=== PATIENT | male | born 1990 | race Caucasian/White ===

== ENCOUNTER 2016-09-21 15:03 | Emergency (ER) | payer MEDICAID ==
--- NOTE | 2016-09-21 16:00 | CPEKG ---
Heart Rate: 83 RR Interval: 723 P-R Interval: 152 QRSD Interval: 90 QT Interval: 368 QTC Interval: 433 P [place]: 62 QRS [place]: 107 T Wave [place]: 66 EKG Severity - OTHERWISE NORMAL ECG - EKG Impression: SINUS RHYTHM EKG Impression: BORDERLINE RIGHT AXIS DEVIATION Electronically Signed By: Shirley Osman 21-Sep-2016 22:02:12
[2016-09-21] MEDS ORDERED: ONDANSETRON 4 MG/2 ML VIAL IVP ONE (16:13)
[2016-09-21 16:20] LABS: % IMMATURE GRANULYOCYTES 0.3 % (0.0-1.1); ABSOLUTE IMMATURE GRANULOCYTES 0.02 10^3/uL (0.00-0.10); ADD DIFF? NO; ADD MORPH? NO; ADD SCAN? NO; ATYPICAL LYMPHOCYTE FLAG 30 (0-99); FRAGMENT RBC FLAG 0 (0-99); HEMATOCRIT 46.8 % (40.0-51.0); HEMOGLOBIN 16.7 g/dL (13.7-17.5); LEFT SHIFT FLG 0 (0-99); LIPEMIA HEMOLYSIS FLAG 90 (0-99); MEAN CELL HEMOGLOBIN 31.5 pg (27.9-34.1); MEAN CELL HEMOGLOBIN CONCENTR. 35.7 g/dL (32.4-36.7); MEAN CELL VOLUME 88.3 fL (81.5-99.8); MEAN PLATELET VOLUME 10.2 fL (8.7-11.7); PLATELET CLUMPS FLAG 10 (0-99); PLATELET COUNT 203 10^3/uL (150-400); RED CELL DISTRIBUTION WIDTH 12.8 % (11.5-15.2)
--- NOTE | 2016-09-21 16:20 | EDPHY ---
H & P Stated Complaint: CP HPI/ROS: CHIEF COMPLAINT: Chest pain, difficulty swallowing, nausea or vomiting HISTORY OF PRESENT ILLNESS: Several days history of cough, chest pain, shortness of breath, abdominal pain, nausea, vomiting, shaking. This was a gradual onset with constant duration. difficult to predict any modifying factors for this. Some improvement with Klonopin takes for anxiety. No definite , predictable exacerbating factors. May have some dark stools this morning. No bright red blood or bright red emesis. No fever but some chills. Concerned about the throat is he has difficulty swallowing. He has no hoarseness or pain in the back Of the throat at this time. He does believe he had a cold recently. no formal workup for this. No other associated complaints or modifying factors. No recent travel or surgery. No history of venous thrombolic event. No exogenous testosterone use. No erythema, edema or pain of the lower extremities. REVIEW OF SYSTEMS: Ten systems reviewed and are negative unless otherwise noted in the HPI EXAMINATION General Appearance: Alert, no distress , anxious Head: normocephalic, atraumatic Eyes: Pupils equal and round, no conjunctival pallor or injection. EOMs intact ENT, Mouth: Mucous membranes moist. Postnasal drip but no edema or erythema. No abscess. Normal voice Neck: Normal inspection, supple, non-tender. Lymphadenopathy Respiratory: Lungs are clear to auscultation. No wheezing rhonchi or crackles Cardiovascular: Regular rate and rhythm. Pulses intact distally. Gastrointestinal: Abdomen is soft and nontender . No CVA tenderness. No tympany, rigidity. Nonacute abdomen. Back: non-tender, no bony abnormalities Neurological: A&O, nonfocal, Mild resting tremor. Strength is 5/5 in all limbs. No pronator drift. Skin: Warm and dry, no rash Extremities: Nontender, no pedal edema Psychiatric: Mood and affect normal DIFFERENTIAL DIAGNOSES: Including but not limited to Anxiety reaction, pericarditis, pleurisy, pneumonia, bronchitis, influenza, PE MDM: 4:17 p.m. multiple complaints including chest pain and throat pain. The patient does not have risk factors for venous embolic event, the symptoms have been present for 3-5 days. Vital signs are stable he does appear somewhat anxious. I have ordered pain medication, laboratory studies, chest x-ray. I very low suspicion for PE, but I have ordered a D-dimer. EKG shows early repolarization but no ST depressions or acute ischemia. 5:09 p.m. labs are within normal limits without any abnormal findings. This includes a negative D-dimer. Chest x-ray is clear without any consolidation For pneumonia. I suspect that there is a high component of anxiety to this, along with the likely viral scenario, pericarditis versus pleurisy. More likely pleurisy. He is resting comfortably in no acute distress. He is feeling better given our treatment here. 5:20 p.m. I have discussed case with Dr. Osman she has examined the patient. We are in agreement the patient is stable for discharge home. We will treat him presumptively with Zithromax, anti-inflammatories. Regarding his mention of the dark stools, I did recommend a digital rectal exam for occult blood, and he has declined. He feels it is an insignificant amount of blood. He is instructed follow up with primary care physician for ongoing symptoms, worsening chest pain, difficulty swallowing or shortness of breath. He is comfortable with this plan and discharged home in stable condition. EKG: Interpreted by Dr. Osman. Rate is 80 beats per minute, sinus rhythm. Right axis deviation. Early repolarization in her lateral leads. T-waves inverted in AVR. Interpretation normal sinus rhythm with early refill right after deviation SUPERVISION: Patient was evaluated in conjunction with the supervising physician. Please see their note for details. Source: Patient, Family Exam Limitations: No limitations - Personal History Current Tetanus/Diphtheria Vaccine: Yes Current Tetanus Diphtheria and Acellular Pertussis (TDAP): Yes - Medical/Surgical History Hx Asthma: No Hx Chronic Respiratory Disease: No Hx Diabetes: No Hx Cardiac Disease: No Hx Renal Disease: No Hx Cirrhosis: No Hx Alcoholism: No Hx HIV/AIDS: No Hx Splenectomy or Spleen Trauma: No Other PMH: ANXIETY - Social History Smoking Status: Never smoked Constitutional: Initial Vital Signs Temperature (C) 98.4 F 09/21/16 15:44 Heart Rate 109 H 09/21/16 15:44 Respiratory Rate 14 09/21/16 15:44 Blood Pressure 153/89 H 09/21/16 15:44 O2 Sat (%) 96 09/21/16 15:44 O2 Delivery Mode Room Air Allergies/Adverse Reactions: No Known Allergies Allergy (Unverified 09/21/16 15:43) Home Medications: Medication Instructions Recorded Azithromycin [Zithromax] 250 mg PO DAILY #6 tab 09/21/16 Medical Decision Making - Data Points Laboratory Results: Laboratory Results 09/21/16 16:00 09/21/16 16:20 09/21/16 09/21/16 09/21/16 16:20 16:19 16:00 WBC 6.60 10^3/uL (3.80-9.50) RBC 5.30 10^6/uL (4.40-6.38) Hgb 16.7 g/dL (13.7-17.5) Hct 46.8 % (40.0-51.0) MCV 88.3 fL (81.5-99.8) MCH 31.5 pg (27.9-34.1) MCHC 35.7 g/dL (32.4-36.7) RDW 12.8 % (11.5-15.2) Plt Count 203 10^3/uL (150-400) MPV 10.2 fL (8.7-11.7) Neut % (Auto) 57.1 % (39.3-74.2) Lymph % (Auto) 25.2 % (15.0-45.0) [place] % (Auto) 16.5 H % (4.5-13.0) Eos % (Auto) 0.6 % (0.6-7.6) Baso % (Auto) 0.3 % (0.3-1.7) Nucleat RBC Rel Count 0.0 % (0.0-0.2) Absolute Neuts (auto) 3.77 10^3/uL (1.70-6.50) Absolute Lymphs (auto) 1.66 10^3/uL (1.00-3.00) Absolute Monos (auto) 1.09 H 10^3/uL (0.30-0.80) Absolute Eos (auto) 0.04 10^3/uL (0.03-0.40) Absolute Basos (auto) 0.02 10^3/uL (0.02-0.10) Absolute Nucleated RBC 0.00 10^3/uL (0-0.01) Immature Gran % 0.3 % (0.0-1.1) Immature Gran # 0.02 10^3/uL (0.00-0.10) PT 12.8 SEC (12.0-15.0) INR 0.97 (0.83-1.16) APTT 26.8 SEC (23.0-38.0) D-Dimer < 0.27 ug/mLFEU (0.00-0.50) Sodium 141 mEq/L (134-144) Potassium 3.6 mEq/L (3.5-5.2) Chloride 102 mEq/L (97-110) Carbon Dioxide 24 mEq/l (22-31) Anion Gap 15 mEq/L (8-16) BUN 8 mg/dL (7-23) Creatinine 0.8 mg/dL (0.7-1.3) Estimated GFR > 60 Glucose 94 mg/dL (70-100) Calcium 9.8 mg/dL (8.5-10.4) Total Bilirubin 0.8 mg/dL (0.1-1.4) Conjugated Bilirubin 0.3 mg/dL (0.0-0.5) Unconjugated Bilirubin 0.5 mg/dL (0.0-1.1) AST 36 IU/L (17-59) ALT 37 IU/L (21-72) Alkaline Phosphatase 90 IU/L (38-126) Troponin I < 0.012 ng/mL (0-0.034) Total Protein 8.5 H g/dL (6.3-8.2) Albumin 4.9 g/dL (3.5-5.0) Lipase 95.0 IU/L (23-300) Medications Given: Discontinued Medications Morphine Sulfate (Morphine) 4 mg IVP EDNOW ONE Stop: 09/21/16 16:14 Last Admin: 09/21/16 16:29 Dose: 4 mg Ondansetron HCl (Zofran) 4 mg IVP EDNOW ONE Stop: 09/21/16 16:14 Last Admin: 09/21/16 16:29 Dose: 4 mg Departure - Departure Disposition: Home, Routine, Self-Care Clinical Impression: Chest pain Qualifiers: Qualifier Code: (R07.9) Chest pain, unspecified Pharyngitis Qualifiers: Qualifier Code: (J02.9) Acute pharyngitis, unspecified Nausea & vomiting Qualifiers: Qualifier Code: (R11.2) Nausea with vomiting, unspecified Condition: Good Instructions: Pleurisy (ED), Chest Pain (ED), Pharyngitis (ED) Additional Instructions: Follow-up with primary care physician for definitive care. Return to ER for worsening chest pain, shortness of breath, fever or bright red blood per stool Referrals: NONE *PRIMARY CARE P,. [Primary Care Provider] - As per Instructions Burt Beebe DO [Doctor of Osteopathy] - As per Instructions Prescriptions: Azithromycin [Zithromax] 250 mg PO DAILY #6 tab
[2016-09-21 16:31] LABS: APTT 26.8 SEC (23.0-38.0); INR 0.97 (0.83-1.16); PROTIME(PATIENT) 12.8 SEC (12.0-15.0)
[2016-09-21 16:32] LABS: ALANINE AMINOTRANSFERASE 37 IU/L (21-72); ALBUMIN 4.9 g/dL (3.5-5.0); ALKALINE PHOSPHATASE 90 IU/L (38-126); ANION GAP 15 mEq/L (8-16); ASPARTATE AMINOTRANSFERASE 36 IU/L (17-59); BILIRUBIN,TOTAL 0.8 mg/dL (0.1-1.4); BILIRUBIN-CONJUGATED 0.3 mg/dL (0.0-0.5); BILIRUBIN-UNCONJUGATED 0.5 mg/dL (0.0-1.1); CALCIUM 9.8 mg/dL (8.5-10.4); CARBON DIOXIDE 24 mEq/l (22-31); CHLORIDE 102 mEq/L (97-110); CREATININE 0.8 mg/dL (0.7-1.3); GLOMERULAR FILTRATION RATE > 60; GLUCOSE 94 mg/dL (70-100); POTASSIUM 3.6 mEq/L (3.5-5.2); SODIUM 141 mEq/L (134-144); TOTAL PROTEIN 8.5 g/dL (6.3-8.2)
[2016-09-21 16:42] LABS: TROPONIN I < 0.012 ng/mL (0-0.034)
--- NOTE | 2016-09-21 16:47 | DX ---
PA and Lateral Chest Indication: Chest pain and cough Comparison: None Findings: The lungs are well aerated and clear. No pneumothorax, consolidation, or effusion. Heart si ze normal. Impression: Clear lungs. No acute process.
[2016-09-21 17:42] VITALS: BP 157/77; PULSE 102; RESP 18; TEMP 98.8; O2SAT 97
== END 2016-09-21 17:40 | disposition home or self-care (01) ==
DX: R11.2 Nausea with vomiting, unspecified (principal); R07.9 Chest pain, unspecified; J02.9 Acute pharyngitis, unspecified
CPT/HCPCS: 96374; J2405

== ENCOUNTER 2016-10-07 17:46 | Emergency (ER) | payer MEDICAID ==
[2016-10-07 17:51] VITALS: TEMP 98.2
--- NOTE | 2016-10-07 18:07 | CPEKG ---
Heart Rate: 97 RR Interval: 619 P-R Interval: 152 QRSD Interval: 88 QT Interval: 356 QTC Interval: 452 P [place]: 58 QRS [place]: 108 T Wave [place]: 8 EKG Severity - OTHERWISE NORMAL ECG - EKG Impression: SINUS RHYTHM EKG Impression: BORDERLINE RIGHT AXIS DEVIATION Electronically Signed By: Héctor Mix 07-Oct-2016 23:47:51
--- NOTE | 2016-10-07 18:08 | EDPHY ---
H & P Stated Complaint: Chest pain recently ran out of klonipin Time Seen by Provider: 10/07/16 18:07 HPI/ROS: CHIEF COMPLAINT: Chest pain after running out of Klonopin HISTORY OF PRESENT ILLNESS: The patient presents to the ED with complaints of an acute exacerbation of subacute chest pain the past several months after running out Klonopin. Patient was seen in the ED approximately 1 month ago for evaluation of cough and chest pain. He had an unremarkable workup at that point time. The patient specifically had a negative D-dimer, unremarkable chest x- ray and normal EKG. The patient has been on Klonopin chronically but recently stopped taking the medication 3 days ago when he ran out. He had been taking 3- 4 mg daily. REVIEW OF SYSTEMS: A comprehensive 10 point review of systems is otherwise negative aside from elements mentioned in the history of present illness. Source: Patient Exam Limitations: No limitations - Personal History Current Tetanus/Diphtheria Vaccine: Unsure Current Tetanus Diphtheria and Acellular Pertussis (TDAP): Unsure - Medical/Surgical History Hx Asthma: No Hx Chronic Respiratory Disease: No Hx Diabetes: No Hx Cardiac Disease: No Hx Renal Disease: No Hx Cirrhosis: No Hx Alcoholism: No Hx HIV/AIDS: No Hx Splenectomy or Spleen Trauma: No Other PMH: ANXIETY - Social History Smoking Status: Never smoked - Physical Exam Exam: General Appearance: Alert, anxious, no acute distress Eyes: Pupils equal and round no pallor or injection ENT, Mouth: Mucous membranes moist Respiratory: There are no retractions, lungs are clear to auscultation Cardiovascular: Regular rate and rhythm Gastrointestinal: Abdomen is soft and nontender, no masses, bowel sounds normal Neurological: A&O, normal motor function, normal sensory exam, normal cranial nerves Skin: Warm and dry, no rashes Musculoskeletal: Neck is supple nontender Extremities: symmetrical, full range of motion Constitutional: Initial Vital Signs Temperature (C) 36.8 C 10/07/16 17:48 Heart Rate 118 H 10/07/16 17:48 Respiratory Rate 16 10/07/16 17:48 Blood Pressure 154/90 H 10/07/16 17:48 O2 Sat (%) 97 10/07/16 17:48 O2 Delivery Mode Room Air Allergies/Adverse Reactions: No Known Allergies Allergy (Unverified 09/21/16 15:43) Home Medications: Medication Instructions Recorded Azithromycin [Zithromax] 250 mg PO DAILY #6 tab 09/21/16 Hydrocodone/Acetaminophen 1 - 2 each PO Q4H PRN #20 tablet 09/21/16 [Hydrocodon-Acetaminoph 7.5-325] Promethazine HCl 25 mg PO Q6-8PRN PRN #15 tablet 09/21/16 clonAZEPAM [Klonopin] 2 mg PO DAILY PRN #40 tablet 10/07/16 Medical Decision Making - Diagnostics EKG Interpretation: EKG: Complete interpretation has been separately recorded in the [email or web address] archive. Summary impression: Sinus rhythm, rate 73 ED Course/Re-evaluation: The patient presents to the ED with chest pain and dyspnea likely secondary to benzodiazepine withdrawal. The patient did receive 1 mg of IV Ativan. The patient has been evaluated in the ED in the past several weeks and had an unremarkable workup including a negative troponin, D-dimer EKG. The patient has no complaints of asymmetric calf pain or swelling. The patient has no hypoxemia. The patient has no evidence of an abnormality on his EKG. The patient was reassessed and is feeling better after receiving Ativan. At this point time he will be given a short course of Klonopin. I have asked him to follow up with primary care. Differential Diagnosis: Differential diagnosis considered includes benzodiazepine withdrawal, arrhythmia , pulmonary embolism, metabolic abnormality - Data Points Medications Given: Discontinued Medications Lorazepam (Ativan Injection) 1 mg IVP EDNOW ONE Stop: 10/07/16 18:40 Last Admin: 10/07/16 18:49 Dose: 1 mg Departure - Departure Disposition: Home, Routine, Self-Care Clinical Impression: Chest pain Condition: Good Instructions: Chest Pain (ED) Additional Instructions: 1. Please schedule a follow-up appointment with [facility], Dr. Andrey Dozier, you have been referred to for further evaluation of your chronic chest pain. 2. You have been given a short prescription of Klonopin. Please schedule a follow-up appointment with a primary care provider to establish routine care. You have been given the contact number more of a primary care provider at [facility] to arrange follow up with. 3. Please return to the ED for markedly worsening symptoms or other concerns. Referrals: Andrey Dozier MD [Medical Doctor] - As per Instructions Gus Worrell MD [Medical Doctor] - As per Instructions Prescriptions: clonAZEPAM [Klonopin] 2 mg PO DAILY PRN #40 tablet PRN Reason: for anxiety
[2016-10-07] MEDS ORDERED: LORazepam 2 MG/ML INJ IVP ONE (18:39)
[2016-10-07 18:50] VITALS: O2SAT 96
[2016-10-07] MEDS ORDERED: fentaNYL 100 MCG/2 ML INJ IVP ONE (20:10)
[2016-10-07] MEDS ORDERED: KETOROLAC 30 MG/1 ML SDV IVP ONE (20:10)
[2016-10-07 20:58] VITALS: BP 134/91; PULSE 96; RESP 19
== END 2016-10-07 21:36 | disposition home or self-care (01) ==
DX: R07.9 Chest pain, unspecified (principal)
CPT/HCPCS: 96374; J1885; J3010

== ENCOUNTER 2017-01-06 17:39 | Emergency (ER) | payer MEDICAID ==
[2017-01-06 17:46] VITALS: BP 134/87; PULSE 104; RESP 20; TEMP 98.4; O2SAT 98
--- NOTE | 2017-01-06 17:55 | EDPHY ---
H & P Time Seen by Provider: 01/06/17 17:46 HPI/ROS: CHIEF COMPLAINT: Low back pain HISTORY OF PRESENT ILLNESS: This patient is a 26 year old male who presents to the Emergency Department complaining of lower back pain beginning 10 days prior to arrival after falling off of a bar stool. He reports that he leaned back, attempting to brace himself with the bar, when he fell directly backward, hitting his low back on a concrete floor. He reports some head trauma with the fall and is unsure if he lost consciousness. Since the event, he has had persistent throbbing low back pain that has not been alleviated with use of ibuprofen or narcotic pain medication. He denies weakness or paresthesias to his legs. He also reports a headache (severity5-6/10) localized to his occipital scalp with moderate improvement using ibuprofen. He has no additional complaints. Medical history includes anxiety and asthma. REVIEW OF SYSTEMS: Constitutional: No fever, no chills Eyes: No visual changes ENT: No sore throat Respiratory: No cough, no shortness of breath Cardiac: No chest pain Gastrointestinal: No nausea, no vomiting, no abdominal pain Genitourinary: No hematuria, no dysuria Musculoskeletal: +low back pain, no leg pain or swelling Skin: No rash Neurological: +moderate headache, no numbness, no weakness Psychiatric: +anxiety at baseline, no depression Past Medical/Surgical History: Anxiety (gabapentin, Clonazepam) and asthma (albuterol inhaler) Social History: Never smoked, lives in [place] Smoking Status: Never smoked Physical Exam: General Appearance: Alert, no distress Eyes: Pupils equal and round, no conjunctival pallor or injection Head: Atraumatic ENT, Mouth: Mucous membranes moist Neck: Normal inspection Back: Midline tenderness over upper lumbar spine, no thoracic tenderness Respiratory: Lungs are clear to auscultation Cardiovascular: Regular rate and rhythm Gastrointestinal: Abdomen is soft and non- tender Neurological: Alert, oriented x3, cranial nerves II through XII intact, motor 5 /5, sensory intact to light touch, normal gait Skin: Warm and dry, no rash Extremities: Nontender, no pedal edema Psychiatric: Anxious affect Constitutional: Initial Vital Signs Temperature (C) 36.9 C 01/06/17 17:42 Heart Rate 104 H 01/06/17 17:42 Respiratory Rate 20 01/06/17 17:42 Blood Pressure 134/87 H 05/10/17 17:42 O2 Sat (%) 98 01/06/17 17:42 O2 Delivery Mode Room Air Allergies/Adverse Reactions: buspirone Allergy (Verified 01/06/17 17:41) venlafaxine [From Effexor] Allergy (Verified 01/06/17 17:41) Home Medications: Medication Instructions Recorded clonazePAM [Klonopin] 2 mg PO DAILY PRN #40 tablet 10/07/16 GABAPENTIN 01/06/17 Proair Hfa 01/06/17 Medical Decision Making - Diagnostics Imaging Results: Imaging Impressions Lumbar Spine X-Ray 01/06/17 17:57 Impression: No evidence for fracture lumbar spine or significant degenerative change. ED Course/Re-evaluation: This 26-year-old male presents with complaints of low back pain and headache secondary to falling backwards from a bar stool 10 days prior to arrival. He has been unable to find any alleviating factors for his low back pain and presents today due to continued discomfort. His headache has been responsive to Ibuprofen use at home. He has no associated neurological complaints. On exam, he has midline lumbar tenderness. His head appears atraumatic. He has no neurological deficits. PECARN criteria negative; neuro imaging indicated. Will proceed with x-ray of the lumbar spine. X-ray reviewed by myself and is negative. I discussed these results with the patient. I recommended that we administer a Lidoderm patch in the ED prior to discharge home, but he declines this. I discussed with him my recommendation that he treat pain with Ibuprofen and follow-up with his primary care provider if his symptoms do not resolve within the next week. He expresses agreement to this and will be discharged home in good condition. Differential Diagnosis: The differential diagnosis for the patient's back pain included but was not limited to musculoskeletal pain, epidural abscess, herniated disk, spinal fracture, and intra-abdominal causes including urinary system. Departure - Departure Disposition: Home, Routine, Self-Care Clinical Impression: Low back pain Qualifiers: Chronicity: acute Back pain laterality: midline Sciatica presence: without sciatica Qualified Code(s): M54.5 - Low back pain Condition: Good Instructions: Acute Low Back Pain (ED) Additional Instructions: 1. Take 600mg Ibuprofen every 6 hours as needed for pain. 2. Follow-up with your primary care provider if your symptoms do not completely resolve within the next 5-7 days. 3. Return to the Emergency Department with severe uncontrollable pain, numbness or tingling, vision changes, difficulty controlling your bowel or bladder, or for other serious concerns. Referrals: Yulisa Kinney MD [Primary Care Provider] - As per Instructions Report Scribed for: Shirley Osman Report Scribed by: Jacinta George Date of Report: 01/06/17 Time of Report: 17:49 Physician Review and Approval Statement: 01/06/17 17:49 Portions of this note were transcribed by a emergency medical technician/driver. I personally performed a history, physical exam, medical decision making, and confirmed accuracy of information the transcribed note.
[2017-01-06] MEDS ORDERED: LIDOCAINE 5% 1 EA PATCH TD ONE (18:28)
[2017-01-07] MEDS ORDERED: LIDOCAINE 5% 1 EA PATCH TD ONE (18:25)
== END 2017-01-06 18:38 | disposition home or self-care (01) ==
DX: S39.92XA Unspecified injury of lower back, initial encounter (principal); J45.909 Unspecified asthma, uncomplicated; W08.XXXA Fall from other furniture, initial encounter

== ENCOUNTER 2017-03-07 14:08 | Emergency (ER) | payer MEDICAID ==
[2017-03-07 14:16] VITALS: RESP 16; TEMP 98.1
[2017-03-07] MEDS ORDERED: predniSONE 20 MG TAB PO ONE (15:07)
--- NOTE | 2017-03-07 15:09 | EDPHY ---
H & P Time Seen by Provider: 03/07/17 14:52 HPI/ROS: CHIEF COMPLAINT: Sore throat HISTORY OF PRESENT ILLNESS: Patient is been symptomatic since March 02. He has a sore throat and feels like his neck is swollen with subjective fevers. Symptoms are moderate and associated with pain on swallowing although he has been able to drink water. Decreased food intake. He has asthma and has been coughing a little more than usual associated with some reflux symptoms. No earache. No headache. No dental symptoms. REVIEW OF SYSTEMS: Laryngitis and hoarse voice. No skin changes. No vomiting or diarrhea, no skin rash. PAST MEDICAL HISTORY: Includes anxiety, cholecystectomy, asthma, hypertension Social history: No tobacco smoking General Appearance: Alert and conversant, cooperative. Normal tympanic membranes bilaterally. No trismus. Uvula midline. No peritonsillar swelling. Pharynx is erythematous but no exudate. No stridor or drooling and mucous membranes are moist. No gum swelling. Patient has shallow ulcer on left tonsillar pillar and a cold sore on his left lower lip. Some submandibular lymphadenopathy but no meningeal signs and good range of motion of the neck. Slight expiratory wheezing bilaterally but speaks in full sentences. Hoarse voice but no stridor and speaks in full sentences. No urticaria. No angioedema. Emergency Department course/MDM: Likely viral syndrome with pharyngitis. Strep test is negative. I think acute bacterial infection is unlikely. Airway is intact. Steroids for pharyngitis and asthma with wheezing discussed and consented. [id number] NSAIDs. ENT referral if not improving. He does not have evidence for systemic allergic reaction or anaphylaxis. Smoking Status: Never smoked Constitutional: Initial Vital Signs Temperature (C) 36.7 C 03/07/17 14:12 Heart Rate 82 03/07/17 14:12 Respiratory Rate 16 03/07/17 14:12 Blood Pressure 128/72 H 03/07/17 14:12 O2 Sat (%) 97 03/07/17 14:12 O2 Delivery Mode Room Air Allergies/Adverse Reactions: buspirone Allergy (Verified 01/06/17 17:41) venlafaxine [From Effexor] Allergy (Verified 01/06/17 17:41) Home Medications: Medication Instructions Recorded clonazePAM [Klonopin] 2 mg PO DAILY PRN #40 tablet 10/07/16 GABAPENTIN 05/10/17 Proair Hfa 01/06/17 Metoprolol Succinate 03/07/17 predniSONE 10 mg PO AD #15 tab 03/07/17 MDM/Departure - MDM Medications Given: Discontinued Medications Prednisone (Prednisone) 60 mg PO EDNOW ONE Stop: 03/07/17 15:08 Last Admin: 03/07/17 15:24 Dose: 60 mg - Depart Disposition: Home, Routine, Self-Care Clinical Impression: Acute pharyngitis Qualifiers: Pharyngitis/tonsillitis etiology: unspecified etiology Qualified Code(s): J02.9 - Acute pharyngitis, unspecified Condition: Good Instructions: Pharyngitis (ED) Additional Instructions: Scheduled Advil or Aleve as discussed for the next 4 days. Please return if you have trouble breathing or swallowing. ENT referral if not better in 48 hours. Prescriptions: predniSONE 10 mg PO AD #15 tab Referrals: Yulisa Kinney MD [Primary Care Provider] - As per Instructions Suzy Rosario MD [Medical Doctor] - 2-3 days, if not improved
[2017-03-07 15:25] VITALS: BP 138/81; PULSE 85; O2SAT 96
== END 2017-03-07 15:24 | disposition home or self-care (01) ==
DX: J02.9 Acute pharyngitis, unspecified (principal); I10 Essential (primary) hypertension; J45.909 Unspecified asthma, uncomplicated

== ENCOUNTER 2017-05-14 10:34 | Day surgery (SDC) | payer MEDICAID ==
[2017-05-14] MEDS ORDERED: LR 1,000 ML IV ONE (11:38)
[2017-05-14] MEDS ORDERED: LIDOCAINE 1% 2 ML INJ ID PRN (11:38)
--- NOTE | 2017-05-14 11:59 | PDANEPAE ---
ANE History of Present Illness 26 yo M w h/o dyspepsia/hematemesis here for EGD ANE Past Medical History - Cardiovascular History Hx Hypertension: Yes Hx Arrhythmias: No Hx Chest Pain: No Hx Coronary Artery / Peripheral Vascular Disease: No Hx CHF / Valvular Disease: No Hx Palpitations: Yes Cardiovascular History Comment: PAC'S. PVC'S - Pulmonary History Hx COPD: No Hx Asthma/Reactive Airway Disease: Yes Hx Recent Upper Respiratory Infection: No Hx Oxygen in Use at Home: No Hx Sleep Apnea: No Sleep Apnea Screening Result - Last Documented: Negative Pulmonary History Comment: ASTHMA TRIGGERS EXERCISE INDUCED. SOB WITH 2 FLIGHTS OF STAIRS - Neurologic History Hx Cerebrovascular Accident: No Hx Seizures: No Hx Dementia: No - Endocrine History Hx Diabetes: No - Renal History Hx Renal Disorders: No - Liver History Hx Hepatic Disorders: No - Neurological & Psychiatric Hx Hx Neurological and Psychiatric Disorders: Yes Neurological / Psychiatric History Comment: MAJOR DEPRESSIVE DISORDER. PTSD - Cancer History Hx Cancer: No - Congenital Disorder History Hx Congenital Disorders: No - GI History Hx Gastrointestinal Disorders: Yes Gastrointestinal History Comment: EPIGASTRIC PAIN. DYSPHAGIA. INTERMITTENT N & V - Other Health History Other Health History: INTERMITTENT NERVE PAIN - Chronic Pain History Chronic Pain: Yes (NERVE PAIN) - Surgical History Prior Surgeries: LAP JOHAN 2010. RT TESTICLE 1998 ANE Review of Systems Review of Systems: - Exercise capacity Exercise capacity: >=4 METS ANE Patient History - Allergies Allergies/Adverse Reactions: buspirone Allergy (Verified 01/06/17 17:41) metoprolol Allergy (Verified 05/05/17 15:18) PROGRESSION OF REACTIVE AIRWAY DISEASE venlafaxine [From Effexor] Allergy (Verified 01/06/17 17:41) - Home Medications Home Medications: GABAPENTIN TID 01/06/17 [Last Taken 05/14/17] Proair Hfa IH PRN 01/06/17 [Last Taken 05/14/17] Advair 100/50 (*) BID 05/05/17 [Last Taken 05/14/17] Diltiazem DAILY06 05/05/17 [Last Taken 05/14/17] Protonix DAILY 05/05/17 [Last Taken 05/14/17] Singulair DAILY06 05/05/17 [Last Taken 05/14/17] clonazePAM [Klonopin] 1 mg PO BID PRN 05/05/17 [Last Taken 05/14/17] - NPO status NPO Status: no food or drink >8 hours NPO Since - Liquids (Date): 05/14/17 NPO Since - Liquids (Time): 08:30 NPO Since - Solids (Date): 05/13/17 NPO Since - Solids (Time): 21:00 - Anes Hx Anes Hx: no prior problems - Smoking Hx Smoking Status: Never smoked - Alcohol Use Alcohol Use: None - Family Anes Hx Family Anes Hx: none ANE Labs/Vital Signs - Vital Signs Vital Signs: reviewed preoperatively; see RN documention for details Height: 185.42 cm Weight: 74.843 kg ANE Physical Exam - Airway Neck exam: FROM Mallampati Score: Class 2 Mouth exam: normal dental/mouth exam - Pulmonary Pulmonary: no respiratory distress, clear to auscultation - Cardiovascular Cardiovascular: regular rate and rhythym, no murmur, rub, or gallop - ASA Status ASA Status: II ANE Anesthesia Plan Anesthesia Plan: GA with mask
--- NOTE | 2017-05-14 12:00 | PDHPUP ---
History & Physical Update H&P update statement: This history and physical update is based on an assessment of the patient which was completed after admission or registration (within 24 hours), but prior to the surgery/procedure. Full H+P completed 04/16/17. Update not further hematemesis and CBC was normal PE CV rrr s1s2 nl Chest CTA Abd + bs Oralpharynx nl H&P changes: No e/o UGIB
[2017-05-14] MEDS ORDERED: PROPOFOL/EMULSION 500 MG/50 ML BOTTLE IV ONE (12:02)
--- NOTE | 2017-05-14 12:23 | GIREPORT ---
[facility] Surgical Services - Endoscopy Department Patient Name: Angel Colunga Procedure Date: 05/14/2017 11:48 AM Patient Type: Outpatient Attending / ER Physician: Madelyn Chris MD Procedure: Upper GI endoscopy Indications: Epigastric abdominal pain, Heartburn, Hematemesis, Nausea with vomiting Providers: Madelyn Chris MD Medicines: Monitored Anesthesia Care Complications: No immediate complications. Findings: Localized white exudate cold be from candidiasis was found in the middle third of the esophagus. Biopsies were taken with a cold forceps for histology. Estimated blood loss was minimal. Localized mildly erythematous mucosa without bleeding was found in the gastric antrum. Biopsies were taken with a cold forceps for histology. Estimated blood loss was minimal. The examined duodenum was normal. Biopsies for histology were taken with a cold forceps for evaluation of celiac disease. Estimated blood loss was minimal. Estimated Blood Loss: Estimated blood loss was minimal. Post Op Diagnosis: - Possible monilial esophagitis vs EOE. Biopsied. - Erythematous mucosa in the antrum. Biopsied. - Normal examined duodenum. Biopsied. Recommendation: - Await pathology results. - Patient has a contact number available for emergencies. The signs and symptoms of potential delayed complications were discussed with the patient. Return to normal activities tomorrow. Written discharge instructions were provided to the patient. - Resume previous diet. - Continue present medications. - Return to my office in 3 months. - Discharge patient to home. -Thank you fro allowing me to participate in the care of your patient. Attending Participation: I personally performed the entire procedure. Madelyn Chris MD Madelyn Chris MD 05/14/2017 12:22:33 PM Number of Addenda: 0 Note Initiated On: 05/14/2017 11:48 AM Total Procedure Duration Time 0 hours 4 minutes 7 seconds [email or web address]
[2017-05-14 12:40] VITALS: TEMP 97.5
[2017-05-14 13:49] VITALS: BP 125/64; RESP 26
[2017-05-14 13:50] VITALS: O2SAT 98
--- NOTE | 2017-05-14 16:49 | POSTANESTH ---
Post Anesthetic Evaluation Cardiovascular Status: Normal, Stable, Similar to Pre-Op Cond Respiratory Status: Normal, Stable, Similar to Pre-op Cond. Level of Consciousness/Mental Status: Can Participate in Eval, Alert and Oriented Pain Control: Adequate, Prn Tx Ordered Nausea/Vomiting Control: Adequate, Prn Tx Ordered Complications Possibly Related to Anesthesia: None Noted
== END 2017-05-14 13:10 | disposition home or self-care (01) ==
LOC: FSGY 10:34
PROVIDERS: ATTEND Internal Medicine Gastroenterology
PROC: 0DB68ZX Excision of Stomach, Via Natural or Artificial Opening Endoscopic, Diagnostic (ICD-10-PCS; principal; 2017-05-14 12:00)
PROC: 0DB98ZX Excision of Duodenum, Via Natural or Artificial Opening Endoscopic, Diagnostic (ICD-10-PCS; principal; 2017-05-14 12:00)
PROC: 0DB28ZX Excision of Middle Esophagus, Via Natural or Artificial Opening Endoscopic, Diagnostic (ICD-10-PCS; principal; 2017-05-14 12:00)
DX: R10.13 Epigastric pain (principal); K22.9 Disease of esophagus, unspecified; K29.50 Unspecified chronic gastritis without bleeding; R11.2 Nausea with vomiting, unspecified; R13.10 Dysphagia, unspecified
CPT/HCPCS: J2704

== ENCOUNTER → 2017-06-28 | Outpatient (CLI) | payer MEDICAID | LOC: FIMAGING 16:30 | PROVIDERS: ATTEND Family Medicine | DX: S29.9XXA Unspecified injury of thorax, initial encounter (principal) ==

== ENCOUNTER → 2017-07-05 | Outpatient (CLI) | payer MEDICAID | LOC: FIMAGING 12:10 | PROVIDERS: ATTEND Family Medicine | DX: R07.81 Pleurodynia (principal) ==

== ENCOUNTER → 2017-08-19 | Outpatient (CLI) | payer MEDICAID | LOC: FIMAGING 15:12 | PROVIDERS: ATTEND Internal Medicine Pulmonary Disease | DX: S22.31XD Fracture of one rib, right side, subsequent encounter for fracture with routine healing (principal) ==

== ENCOUNTER → 2018-05-02 | Outpatient (CLI) | payer MEDICAID | LOC: FIMAGING 16:33 | PROVIDERS: ATTEND Family Medicine | DX: M25.521 Pain in right elbow (principal); M25.561 Pain in right knee ==